=== PATIENT | male | born 1945 | race African-American/Black ===

== ENCOUNTER 2018-07-16 22:17 | Inpatient (IN) | payer MEDICAID, MEDICARE ==
[2018-07-16 22:51] LABS: URINE SOURCE RANDOM
[2018-07-16 22:54] LABS: URINE BILIRUBIN NEGATIVE (NEGATIVE); URINE BLOOD NEGATIVE (NEGATIVE); URINE GLUCOSE (UA) NEGATIVE (NEGATIVE); URINE KETONE NEGATIVE (NEGATIVE); URINE LEUKOCYTE ESTERASE NEGATIVE (NEGATIVE); URINE NITRATE NEGATIVE (NEGATIVE); URINE PROTEIN NEGATIVE (NEGATIVE); URINE UROBILINOGEN 0.2 E.U./dL (0.2 - 1.0)
[2018-07-16 23:01] LABS: URINE CLARITY CLEAR (CLEAR); URINE COLOR YELLOW; URINE MICROSCOPIC INDICATED? NO
--- NOTE | 2018-07-16 23:02 | ED Physician Chart ---
ED Chief Complaint/HPI - Patient Information Date Seen:: 07/16/18 Time Seen:: 22:45 Chief Complaint:: fall History of Present Illness:: 73 yr old bm s/[place] 4 [place] [facility] [place] brow and rt flank and fx lt wrist s/p splint pt states he had syncope loc episode while wheeling his walker with cart Allergies:: Allergies Allergy/AdvReac Type Severity Reaction Status Date / Time Penicillins Allergy Verified 07/16/18 22:27 Vitals:: Vital Signs - 8 hr 07/16/18 22:18 Temp 98.2 F HR 78 RR 16 BP 137/76 O2 Sat % 92 ED Review of Systems - Review of Systems General/Constitutional: No fever, No chills Skin: No skin lesions Head: No headache Eyes: No loss of vision ENT: No earache Neck: No neck pain Cardio Vascular: No chest pain Pulmonary: No SOB GI: No vomiting G/U: No dysuria Endocrine: No polyuria Hematopoietic: Bruising (bruising lt eye brow) Allergic/Immuno: No urticaria Neurological: No focal symptoms ED Past Medical History - Past Medical History Past Medical History: Other (see nurses notes) ED Physical Exam - Physical Examination General/Constitutional: Awake, Alert, No distress Head: Atraumatic (bruising lt eyebrow) Skin: No rash ENMT: External ears, nose nl Respiratory: No Wheeze/Rhonchi/Rales Cardio Vascular: No murmur, gallop, rubs Extremities: No tenderness or effusion Neuro/Psych: Alert/oriented ED Assessment - Assessment General Assessment: fall s/p syncope ED Septic Shock - . Is Septic Shock (SBP<90, OR Lactate>4 mmol\L) present?: No - <6hrs of presentation: Vital Signs: Vital Signs - 8 hr 07/16/18 22:18 Temp 98.2 F HR 78 RR 16 BP 137/76 O2 Sat % 92 ED Reassessment (Disposition) - Reassessment Reassessment Condition:: Unchanged - Diagnosis Diagnosis:: fall syncope - Patient Disposition Discharge/Transfer:: Acute Care w/in this hosp
[2018-07-16 23:39] LABS: WHITE BLOOD COUNT 7.3 Th/cmm (4.8-10.8)
[2018-07-16 23:47] LABS: HEMATOCRIT 46.7 % (41.0-60); HEMOGLOBIN 15.3 gm/dL (12-16); MEAN CELL VOLUME 88.1 fl (80-99); MEAN CORPUSCULAR HEMOGLOBIN 28.9 pg (27.0-31.0); MEAN CORPUSCULAR HGB CONC 32.8 pg (28.0-36.0); MEAN PLATELET VOLUME 8.4 fl; PLATELET COUNT 199 Th/cmm (150-400); RED BLOOD COUNT 5.31 Mil/cmm (3.80-5.80); RED CELL DISTRIBUTION WIDTH 15.6 % (11.5-20.0)
[2018-07-17 01:19] LABS: ALB/GLOB RATIO 0.7 (1.0-1.8); ALBUMIN 3.5 gm/dL (4.2-5.5); ANION GAP 20.7 (7.0-16.0); BUN - UREA NITROGEN 22 mg/dL (7-25); CALCIUM SERUM 9.6 mg/dL (8.6-10.3); CHLORIDE 99 mEq/L (98-107); CREATININE - SERUM 1.5 mg/dL (0.7-1.3); GLUCOSE 103 mg/dL (70-105); POTASSIUM SERUM 4.7 mEq/L (3.5-5.1); SODIUM SERUM 138 mEq/L (136-145); TOTAL PROTEIN,SERUM 8.4 gm/dL (6.0-8.3)
[2018-07-17 01:20] LABS: ALKALINE PHOSPHATASE 117 U/L (34-104); BILIRUBIN,TOTAL 0.7 mg/dL (0.3-1.0); SGOT 24 U/L (13-39); SGPT/ALT 12 U/L (7-52)
[2018-07-17 02:45] LABS: BAND NEUTROPHILE 1 % (0-10); EOSINOPHIL 2 % (0-5); LYMPHOCYTE 37 % (20-50); MONOCYTE 8 % (2-10); NEUTROPHILS 52 % (40-80); PLATELET ESTIMATE ADEQUATE (NORMAL)
[2018-07-17 03:55] VITALS: BP 134/78
[2018-07-17 06:19] LABS: % BASOPHILS 0.9 % (0.0-2.0); % EOSINOPHILS 6.3 % (0.0-5.0); % LYMPHOCYTES 36.3 % (20.0-50.0); % MONOCYTES 10.9 % (2.0-10.0); % NEUTROPHILS 45.6 % (40.0-80.0); BASOPHILE ABSOLUTE 0.1 Th/cumm (0-0.2); EOSINOPHILE ABSOLUTE 0.4 Th/cmm (0.1-0.4); HEMATOCRIT 44.4 % (41.0-60); HEMOGLOBIN 14.9 gm/dL (12-16); LYMPHOCYTE ABSOLUTE 2.2 Th/cmm (1.5-3.0); MEAN CELL VOLUME 86.8 fl (80-99); MEAN CORPUSCULAR HEMOGLOBIN 29.1 pg (27.0-31.0); MEAN CORPUSCULAR HGB CONC 33.4 pg (28.0-36.0); MEAN PLATELET VOLUME 8.5 fl; MONOCYTE ABSOLUTE 0.7 Th/cmm (0.3-1.0); NEUTROPHILE ABSOLUTE 2.6 Th/cmm (1.8-8.0); PLATELET COUNT 213 Th/cmm (150-400); RED BLOOD COUNT 5.12 Mil/cmm (3.80-5.80); RED CELL DISTRIBUTION WIDTH 15.3 % (11.5-20.0)
[2018-07-17 06:37] LABS: ANION GAP 11.5 (7.0-16.0); BUN - UREA NITROGEN 20 mg/dL (7-25); CALCIUM SERUM 9.6 mg/dL (8.6-10.3); CARBON DIOXIDE 26.7 mEq/L (21.0-31.0); CHLORIDE 103 mEq/L (98-107); CREATININE - SERUM 1.1 mg/dL (0.7-1.3); GLUCOSE 121 mg/dL (70-105); POTASSIUM SERUM 4.2 mEq/L (3.5-5.1); SODIUM SERUM 137 mEq/L (136-145)
--- NOTE | 2018-07-17 07:57 | Diagnostic Imaging Report ---
Lumbar spine (5 views) HISTORY: Pain Alignment is normal. Diffuse degenerative changes are seen with hypertrophic spur formation noted about the endplates of all vertebrae. Narrowing of the L4-5 and L5-S1 interspaces. Narrowing of the L2-3 interspace. Air is seen within the interspaces at L2-3, L4-5, and L5-S1 reflecting degenerative disc disease. There is a scoliosis of the thoracolumbar spine convexity to the right. This may be positional. Vascular stent noted in the region of the lower abdominal aorta and iliac arteries. IMPRESSION: 1. No acute abnormalities 2. Diffuse degenerative changes 3. Intraluminal aortic stent within the lower aorta and iliac artery regions.
[2018-07-17] MEDS ORDERED: OLODATEROL HCL IH SCH (23:00)
[2018-07-17] MEDS ORDERED: [UNRECOGNIZED DRUG - OTHER] IH SCH (23:00)
[2018-07-17] MEDS ORDERED: TIOTROPIUM BR IH SCH (23:00)
--- NOTE | 2018-07-17 23:42 | History & Physical ---
ADMIT DATE: 07/17/2018 CHIEF COMPLAINT: Weakness, short of breath, and repeated fall. HISTORY OF PRESENT ILLNESS: The patient is a 73-year-old male admitted from the Emergency Room due to severe weakness with repeated fall and resultant severe low back pain. Lumbar spine x-ray in the Emergency Room revealed diffuse degenerative changes on the intraluminal aortic stent within the lower aorta and iliac artery regions. Additionally, the patient also complains of some shortness of breath. He has had COPD and has been on albuterol and Spiriva inhaler as outpatient. Chest x-ray was not done in the Emergency Room and I have just ordered. We will see the results tomorrow. The patient is very lethargic and somewhat confused from time to time. PAST MEDICAL HISTORY: Diabetes, COPD, peripheral vascular disease, and chronic pain syndrome. PAST SURGICAL HISTORY: Status post aortic stent placement. MEDICATIONS: See medication reconciliation list. ALLERGIES: PENICILLIN. FAMILY HISTORY: Noncontributory. SOCIAL HISTORY: The patient smoked before, quit years ago. No history of alcohol or IV drug use. REVIEW OF SYSTEMS: As per HPI. PHYSICAL EXAMINATION: GENERAL: A well-developed male, in no acute distress. SKIN: Warm and dry. VITAL SIGNS: Basically stable. HEENT: Normocephalic, atraumatic. Pupils equal, round, react to light and accommodation. CHEST: Symmetrical. LUNGS: Few wheezing appreciated. CARDIAC: Normal sinus rhythm. S1, S2. ABDOMEN: Benign, soft, nontender. EXTREMITIES: No clubbing, cyanosis, or edema . HEMATOLOGICAL: Unremarkable. LABORATORY DATA: Reviewed. BUN 22, creatinine 1.5. ASSESSMENT AND PLAN: 1. Severe weakness with repeated fall. Apparently, there is no radiographic evidence of acute fracture, but the patient is very weak. I have ordered physical therapy evaluation and treatment. 2. Acute kidney injury with elevated creatinine: We will try to avoid any nephrotoxic medications if possible. We will repeat BMP. 3. Severe low back pain, likely sciatic: Continue conservative management and physical therapy. 4. Diabetes: Sliding scale insulin low dose and continue medication. 5. Chronic obstructive pulmonary disease with mild exacerbation: RT protocol and chest x-ray. 6. Peripheral vascular disease. 7. Abdominal aortic aneurysm, status post stent placement: Continue medication. 8. Deep venous thrombosis prophylaxis. 9. History of depression. JOB# [id number]
[2018-07-18] MEDS: Pantoprazole 40 mg EC Tab PO SCH (07:09)
[2018-07-18] MEDS ORDERED: Albuterol Nebulizer 2.5mg/3mL HHN PRN (07:44)
--- NOTE | 2018-07-18 08:45 | Diagnostic Imaging Report ---
Chest x-ray single view History: COPD pneumonia Comparison: None The heart size is normal. No focal pulmonary parenchymal processes. No hilar or mediastinal abnormalities. Mild right basilar atelectasis is noted Impression: No acute abnormalities, mild right basilar atelectasis.
[2018-07-18] MEDS: Aspirin 81mg Chewable Tab PO SCH (09:43)
[2018-07-18] MEDS: Albuterol/Ipratropium Neb 3 ML AERS HHN SCH (20:01)
--- NOTE | 2018-07-18 23:20 | Internal Medicine Prog Note ---
Internal Medicine Subjective - Subjective Service Date: 07/18/18 Patient seen and examined:: without staff Patient is:: awake, verbal, interactive, in bed Per staff patient has:: no adverse event Internal Medicine Objective - Results Result Diagrams: 07/17/18 06:00 07/17/18 06:00 Recent Labs: Laboratory Last Values WBC 6.0 Th/cmm (4.8-10.8) 07/17/18 06:00 RBC 5.12 Mil/cmm (3.80-5.80) 07/17/18 06:00 Hgb 14.9 gm/dL (12-16) 07/17/18 06:00 Hct 44.4 % (41.0-60) 07/17/18 06:00 MCV 86.8 fl (80-99) 07/17/18 06:00 MCH 29.1 pg (27.0-31.0) 07/17/18 06:00 MCHC Differential 33.4 pg (28.0-36.0) 07/17/18 06:00 RDW 15.3 % (11.5-20.0) 07/17/18 06:00 Plt Count 213 Th/cmm (150-400) 07/17/18 06:00 MPV 8.5 fl 07/17/18 06:00 Add Manual Diff YES 07/16/18 23:30 Neutrophils % 45.6 % (40.0-80.0) 07/17/18 06:00 Band Neutrophils % 1 % (0-10) 07/16/18 23:30 Lymphocytes % 36.3 % (20.0-50.0) 07/17/18 06:00 Monocytes % 10.9 % (2.0-10.0) H 07/17/18 06:00 Eosinophils % 6.3 % (0.0-5.0) H 07/17/18 06:00 Basophils % 0.9 % (0.0-2.0) 07/17/18 06:00 Neutrophils (Manual) 52 % (40-80) 07/16/18 23:30 Lymphocytes 37 % (20-50) 07/16/18 23:30 Monocytes 8 % (2-10) 07/16/18 23:30 Eosinophils 2 % (0-5) 07/16/18 23:30 Platelet Estimate ADEQUATE (NORMAL) 09/19/18 23:30 Sodium 137 mEq/L (136-145) 07/17/18 06:00 Potassium 4.2 mEq/L (3.5-5.1) 07/17/18 06:00 Chloride 103 mEq/L (98-107) 07/17/18 06:00 Carbon Dioxide 26.7 mEq/L (21.0-31.0) 07/17/18 06:00 Anion Gap 11.5 (7.0-16.0) 07/17/18 06:00 BUN 20 mg/dL (7-25) 07/17/18 06:00 Creatinine 1.1 mg/dL (0.7-1.3) 07/17/18 06:00 Est GFR ( Amer) TNP 07/17/18 06:00 Est GFR (Non-Af Amer) TNP 07/17/18 06:00 BUN/Creatinine Ratio 18.2 07/17/18 06:00 Glucose 121 mg/dL (70-105) H 07/17/18 06:00 Calcium 9.6 mg/dL (8.6-10.3) 07/17/18 06:00 Total Bilirubin 0.7 mg/dL (0.3-1.0) 07/16/18 23:30 AST 24 U/L (13-39) 07/16/18 23:30 ALT 12 U/L (7-52) 07/16/18 23:30 Alkaline Phosphatase 117 U/L (34-104) H 07/16/18 23:30 Total Protein 8.4 gm/dL (6.0-8.3) H 07/16/18 23:30 Albumin 3.5 gm/dL (4.2-5.5) L 07/16/18 23:30 Globulin 4.9 gm/dL 07/16/18 23:30 Albumin/Globulin Ratio 0.7 (1.0-1.8) L 07/16/18 23:30 TSH 0.70 uIU/ml (0.34-5.60) 07/16/18 23:30 Urine Source RANDOM 07/16/18 22:35 Urine Color YELLOW 07/16/18 22:35 Urine Clarity CLEAR (CLEAR) 07/16/18 22:35 Urine pH 6.0 (4.6 - 8.0) 07/16/18 22:35 Ur Specific [place] <= 1.005 (1.005-1.030) 07/16/18 22:35 Urine Protein NEGATIVE mg/dL (NEGATIVE) 07/16/18 22:35 Urine Glucose (UA) NEGATIVE mg/dL (NEGATIVE) 07/16/18 22:35 Urine Ketones NEGATIVE mg/dL (NEGATIVE) 07/16/18 22:35 Urine Blood NEGATIVE (NEGATIVE) 07/16/18 22:35 Urine Nitrate NEGATIVE (NEGATIVE) 07/16/18 22:35 Urine Bilirubin NEGATIVE (NEGATIVE) 07/16/18 22:35 Urine Urobilinogen 0.2 E.U./dL (0.2 - 1.0) 07/16/18 22:35 Ur Leukocyte Esterase NEGATIVE (NEGATIVE) 07/16/18 22:35 - Physical Exam Vitals and I&O: Vital Signs Temp 97.4 F 07/18/18 20:01 Pulse 70 07/18/18 20:01 Resp 18 07/18/18 20:01 BP 116/64 07/18/18 20:01 Pulse Ox 95 07/18/18 20:01 Intake & Output 07/18/18 07/18/18 07/19/18 06:59 18:59 06:59 Intake Total 200 Balance 200 Weight (lbs) 85.077 kg 88.224 kg Intake: Oral 200 Other: # Voids 2 # Bowel Movements 0 Weight Source Bedscale Bedscale Active Medications: Current Medications Acetaminophen (Tylenol) 650 mg PO Q4H PRN PRN Reason: Pain or Fever >101 Stop: 09/15/18 00:14 Last Admin: 07/18/18 09:49 Dose: 650 mg Albuterol Sulfate (Albuterol 2.5mg/3ml Neb Ud) 2.5 mg HHN Q4H PRN PRN Reason: Shortness of Breath Stop: 09/16/18 07:43 Albuterol/Ipratropium (Duoneb Neb) 3 ml HHN QIDRT [facility] Stop: 09/16/18 14:59 Last Admin: 07/18/18 20:01 Dose: Not Given Aspirin (Aspirin Chewable) 81 mg PO DAILY [facility] Stop: 09/16/18 08:59 Last Admin: 07/18/18 09:43 Dose: 81 mg Atorvastatin Calcium (Lipitor) 40 mg PO DAILY [facility] Stop: 09/16/18 08:59 Last Admin: 07/18/18 09:41 Dose: 40 mg Docusate Sodium (Colace) 200 mg PO BID [facility] Stop: 09/16/18 08:59 Last Admin: 07/18/18 17:37 Dose: 200 mg Duloxetine HCl (Cymbalta) 60 mg PO BID [facility]; Protocol Stop: 09/16/18 08:59 Last Admin: 07/18/18 17:37 Dose: 60 mg Gabapentin (Neurontin) 900 mg PO TID [facility] Stop: 09/16/18 08:59 Last Admin: 07/18/18 20:41 Dose: 900 mg Metoprolol Tartrate (Lopressor) 50 mg PO BID [facility] Stop: 09/16/18 08:59 Last Admin: 07/18/18 17:37 Dose: Not Given Pantoprazole Sodium (Protonix) 40 mg PO QDAC [facility] Stop: 09/16/18 07:29 Last Admin: 07/18/18 07:09 Dose: 40 mg Sitagliptin Phosphate (Januvia) 100 mg PO DAILY [facility] Stop: 09/16/18 08:59 Last Admin: 07/18/18 09:42 Dose: 100 mg General: weak, lethargic HEENT: NC/AT, PERRLA, EOMI, anicteric sclerae, throat clear Neck: Supple, No JVD, No thyromegaly Lungs: wheezing Cardiovascular: RRR, Normal S1, Normal S2 Abdomen: soft, non-tender, non-distended Extremities: clear, edema, ecchymosis Neurological: no change Internal Medicine Assmt/Plan - Assessment Assessment: COPD exacerbation: RT protocol. Weakness: fall prevention precaution. s/p Falls: fall prevention education. Chronic pain syndrome: pain contril. DM: SSI HTN: target 110/70 DVT prophylaxia.
[2018-07-19] MEDS: Albuterol/Ipratropium Neb 3 ML AERS HHN SCH ×5 (06:54→19:27)
[2018-07-19] MEDS: Pantoprazole 40 mg EC Tab PO SCH (08:47)
[2018-07-19] MEDS: Aspirin 81mg Chewable Tab PO SCH (08:47)
--- NOTE | 2018-07-19 23:50 | Internal Medicine Prog Note ---
Internal Medicine Subjective - Subjective Service Date: 07/19/18 Patient seen and examined:: with staff Patient is:: awake, verbal, interactive, in bed Per staff patient has:: no adverse event Internal Medicine Objective - Results Result Diagrams: 07/17/18 06:00 07/17/18 06:00 Recent Labs: Laboratory Last Values WBC 6.0 Th/cmm (4.8-10.8) 07/17/18 06:00 RBC 5.12 Mil/cmm (3.80-5.80) 07/17/18 06:00 Hgb 14.9 gm/dL (12-16) 07/17/18 06:00 Hct 44.4 % (41.0-60) 07/17/18 06:00 MCV 86.8 fl (80-99) 07/17/18 06:00 MCH 29.1 pg (27.0-31.0) 07/17/18 06:00 MCHC Differential 33.4 pg (28.0-36.0) 07/17/18 06:00 RDW 15.3 % (11.5-20.0) 07/17/18 06:00 Plt Count 213 Th/cmm (150-400) 07/17/18 06:00 MPV 8.5 fl 07/17/18 06:00 Add Manual Diff YES 07/16/18 23:30 Neutrophils % 45.6 % (40.0-80.0) 07/17/18 06:00 Band Neutrophils % 1 % (0-10) 07/16/18 23:30 Lymphocytes % 36.3 % (20.0-50.0) 07/17/18 06:00 Monocytes % 10.9 % (2.0-10.0) H 07/17/18 06:00 Eosinophils % 6.3 % (0.0-5.0) H 07/17/18 06:00 Basophils % 0.9 % (0.0-2.0) 07/17/18 06:00 Neutrophils (Manual) 52 % (40-80) 07/16/18 23:30 Lymphocytes 37 % (20-50) 07/16/18 23:30 Monocytes 8 % (2-10) 07/16/18 23:30 Eosinophils 2 % (0-5) 07/16/18 23:30 Platelet Estimate ADEQUATE (NORMAL) 09/19/18 23:30 Sodium 137 mEq/L (136-145) 07/17/18 06:00 Potassium 4.2 mEq/L (3.5-5.1) 07/17/18 06:00 Chloride 103 mEq/L (98-107) 07/17/18 06:00 Carbon Dioxide 26.7 mEq/L (21.0-31.0) 07/17/18 06:00 Anion Gap 11.5 (7.0-16.0) 07/17/18 06:00 BUN 20 mg/dL (7-25) 07/17/18 06:00 Creatinine 1.1 mg/dL (0.7-1.3) 07/17/18 06:00 Est GFR ( Amer) TNP 07/17/18 06:00 Est GFR (Non-Af Amer) TNP 07/17/18 06:00 BUN/Creatinine Ratio 18.2 07/17/18 06:00 Glucose 121 mg/dL (70-105) H 07/17/18 06:00 Calcium 9.6 mg/dL (8.6-10.3) 07/17/18 06:00 Total Bilirubin 0.7 mg/dL (0.3-1.0) 07/16/18 23:30 AST 24 U/L (13-39) 07/16/18 23:30 ALT 12 U/L (7-52) 07/16/18 23:30 Alkaline Phosphatase 117 U/L (34-104) H 07/16/18 23:30 Total Protein 8.4 gm/dL (6.0-8.3) H 07/16/18 23:30 Albumin 3.5 gm/dL (4.2-5.5) L 07/16/18 23:30 Globulin 4.9 gm/dL 07/16/18 23:30 Albumin/Globulin Ratio 0.7 (1.0-1.8) L 07/16/18 23:30 Carcinoembryonic Ag 1.8 ng/mL (0.0-4.7) 07/18/18 00:00 Prostate Specific Ag 2.2 ng/mL (0.0-4.0) 07/18/18 00:00 TSH 0.70 uIU/ml (0.34-5.60) 07/16/18 23:30 Urine Source RANDOM 07/16/18 22:35 Urine Color YELLOW 07/16/18 22:35 Urine Clarity CLEAR (CLEAR) 07/16/18 22:35 Urine pH 6.0 (4.6 - 8.0) 07/16/18 22:35 Ur Specific [place] <= 1.005 (1.005-1.030) 07/16/18 22:35 Urine Protein NEGATIVE mg/dL (NEGATIVE) 07/16/18 22:35 Urine Glucose (UA) NEGATIVE mg/dL (NEGATIVE) 07/16/18 22:35 Urine Ketones NEGATIVE mg/dL (NEGATIVE) 07/16/18 22:35 Urine Blood NEGATIVE (NEGATIVE) 07/16/18 22:35 Urine Nitrate NEGATIVE (NEGATIVE) 07/16/18 22:35 Urine Bilirubin NEGATIVE (NEGATIVE) 07/16/18 22:35 Urine Urobilinogen 0.2 E.U./dL (0.2 - 1.0) 07/16/18 22:35 Ur Leukocyte Esterase NEGATIVE (NEGATIVE) 07/16/18 22:35 - Physical Exam Vitals and I&O: Vital Signs Temp 97.4 F 07/19/18 20:00 Pulse 71 07/19/18 20:00 Resp 20 07/19/18 20:00 BP 100/55 07/19/18 20:00 Pulse Ox 97 07/19/18 20:00 Intake & Output 07/19/18 07/19/18 07/20/18 06:59 18:59 06:59 Intake Total 100 1000 Balance 100 1000 Weight (lbs) 88.904 kg 88.904 kg Intake: Oral 100 1000 Other: # Voids 2 4 # Bowel Movements 0 0 Weight Source Bedscale Bedscale Active Medications: Current Medications Acetaminophen (Tylenol) 650 mg PO Q4H PRN PRN Reason: Pain or Fever >101 Stop: 09/15/18 00:14 Last Admin: 07/19/18 19:39 Dose: 650 mg Albuterol Sulfate (Albuterol 2.5mg/3ml Neb Ud) 2.5 mg HHN Q4H PRN PRN Reason: Shortness of Breath Stop: 09/16/18 07:43 Albuterol/Ipratropium (Duoneb Neb) 3 ml HHN QIDRT [facility] Stop: 09/16/18 14:59 Last Admin: 07/19/18 19:27 Dose: 3 ml Aspirin (Aspirin Chewable) 81 mg PO DAILY [facility] Stop: 09/16/18 08:59 Last Admin: 07/19/18 08:47 Dose: 81 mg Atorvastatin Calcium (Lipitor) 40 mg PO DAILY [facility] Stop: 09/16/18 08:59 Last Admin: 07/19/18 08:48 Dose: 40 mg Docusate Sodium (Colace) 200 mg PO BID [facility] Stop: 09/16/18 08:59 Last Admin: 07/19/18 16:02 Dose: 200 mg Duloxetine HCl (Cymbalta) 60 mg PO BID [facility]; Protocol Stop: 09/16/18 08:59 Last Admin: 07/19/18 16:03 Dose: 60 mg Gabapentin (Neurontin) 900 mg PO TID [facility] Stop: 09/16/18 08:59 Last Admin: 07/19/18 21:03 Dose: 900 mg Metoprolol Tartrate (Lopressor) 50 mg PO BID [facility] Stop: 09/16/18 08:59 Last Admin: 07/19/18 16:02 Dose: 50 mg Pantoprazole Sodium (Protonix) 40 mg PO QDAC [facility] Stop: 09/16/18 07:29 Last Admin: 07/19/18 08:47 Dose: 40 mg Sitagliptin Phosphate (Januvia) 100 mg PO DAILY [facility] Stop: 09/16/18 08:59 Last Admin: 07/19/18 08:47 Dose: 100 mg General: weak, lethargic HEENT: NC/AT, PERRLA, EOMI, anicteric sclerae, throat clear Neck: Supple, No JVD, No thyromegaly Lungs: wheezing Cardiovascular: RRR, Normal S1, Normal S2 Abdomen: soft, non-tender, non-distended Extremities: clear, edema, ecchymosis Neurological: no change Internal Medicine Assmt/Plan - Assessment Assessment: s/p Falls: fall prevention education. COPD exacerbation: RT protocol. Weakness: fall prevention precaution. Chronic pain syndrome: pain contril. DM: SSI HTN: target 110/70 DVT prophylaxia.
[2018-07-20] MEDS: Albuterol/Ipratropium Neb 3 ML AERS HHN SCH ×4 (06:46→19:09)
[2018-07-20] MEDS: Pantoprazole 40 mg EC Tab PO SCH (07:02)
[2018-07-20] MEDS: Aspirin 81mg Chewable Tab PO SCH (09:15)
--- NOTE | 2018-07-20 23:59 | Internal Medicine Prog Note ---
Internal Medicine Subjective - Subjective Service Date: 07/20/18 Patient seen and examined:: without staff Patient is:: awake, verbal, interactive, in bed Per staff patient has:: no adverse event Internal Medicine Objective - Results Result Diagrams: 07/17/18 06:00 07/17/18 06:00 Recent Labs: Laboratory Last Values WBC 6.0 Th/cmm (4.8-10.8) 07/17/18 06:00 RBC 5.12 Mil/cmm (3.80-5.80) 07/17/18 06:00 Hgb 14.9 gm/dL (12-16) 07/17/18 06:00 Hct 44.4 % (41.0-60) 07/17/18 06:00 MCV 86.8 fl (80-99) 07/17/18 06:00 MCH 29.1 pg (27.0-31.0) 07/17/18 06:00 MCHC Differential 33.4 pg (28.0-36.0) 07/17/18 06:00 RDW 15.3 % (11.5-20.0) 07/17/18 06:00 Plt Count 213 Th/cmm (150-400) 07/17/18 06:00 MPV 8.5 fl 07/17/18 06:00 Add Manual Diff YES 07/16/18 23:30 Neutrophils % 45.6 % (40.0-80.0) 07/17/18 06:00 Band Neutrophils % 1 % (0-10) 07/16/18 23:30 Lymphocytes % 36.3 % (20.0-50.0) 07/17/18 06:00 Monocytes % 10.9 % (2.0-10.0) H 07/17/18 06:00 Eosinophils % 6.3 % (0.0-5.0) H 07/17/18 06:00 Basophils % 0.9 % (0.0-2.0) 07/17/18 06:00 Neutrophils (Manual) 52 % (40-80) 07/16/18 23:30 Lymphocytes 37 % (20-50) 07/16/18 23:30 Monocytes 8 % (2-10) 07/16/18 23:30 Eosinophils 2 % (0-5) 07/16/18 23:30 Platelet Estimate ADEQUATE (NORMAL) 09/19/18 23:30 Sodium 137 mEq/L (136-145) 07/17/18 06:00 Potassium 4.2 mEq/L (3.5-5.1) 07/17/18 06:00 Chloride 103 mEq/L (98-107) 07/17/18 06:00 Carbon Dioxide 26.7 mEq/L (21.0-31.0) 07/17/18 06:00 Anion Gap 11.5 (7.0-16.0) 07/17/18 06:00 BUN 20 mg/dL (7-25) 07/17/18 06:00 Creatinine 1.1 mg/dL (0.7-1.3) 07/17/18 06:00 Est GFR ( Amer) TNP 07/17/18 06:00 Est GFR (Non-Af Amer) TNP 07/17/18 06:00 BUN/Creatinine Ratio 18.2 07/17/18 06:00 Glucose 121 mg/dL (70-105) H 07/17/18 06:00 Calcium 9.6 mg/dL (8.6-10.3) 07/17/18 06:00 Total Bilirubin 0.7 mg/dL (0.3-1.0) 07/16/18 23:30 AST 24 U/L (13-39) 07/16/18 23:30 ALT 12 U/L (7-52) 07/16/18 23:30 Alkaline Phosphatase 117 U/L (34-104) H 07/16/18 23:30 Total Protein 8.4 gm/dL (6.0-8.3) H 07/16/18 23:30 Albumin 3.5 gm/dL (4.2-5.5) L 07/16/18 23:30 Globulin 4.9 gm/dL 07/16/18 23:30 Albumin/Globulin Ratio 0.7 (1.0-1.8) L 07/16/18 23:30 Carcinoembryonic Ag 1.8 ng/mL (0.0-4.7) 07/18/18 00:00 Prostate Specific Ag 2.2 ng/mL (0.0-4.0) 07/18/18 00:00 TSH 0.70 uIU/ml (0.34-5.60) 07/16/18 23:30 Urine Source RANDOM 07/16/18 22:35 Urine Color YELLOW 07/16/18 22:35 Urine Clarity CLEAR (CLEAR) 07/16/18 22:35 Urine pH 6.0 (4.6 - 8.0) 07/16/18 22:35 Ur Specific [place] <= 1.005 (1.005-1.030) 07/16/18 22:35 Urine Protein NEGATIVE mg/dL (NEGATIVE) 07/16/18 22:35 Urine Glucose (UA) NEGATIVE mg/dL (NEGATIVE) 07/16/18 22:35 Urine Ketones NEGATIVE mg/dL (NEGATIVE) 07/16/18 22:35 Urine Blood NEGATIVE (NEGATIVE) 07/16/18 22:35 Urine Nitrate NEGATIVE (NEGATIVE) 07/16/18 22:35 Urine Bilirubin NEGATIVE (NEGATIVE) 07/16/18 22:35 Urine Urobilinogen 0.2 E.U./dL (0.2 - 1.0) 07/16/18 22:35 Ur Leukocyte Esterase NEGATIVE (NEGATIVE) 07/16/18 22:35 - Physical Exam Vitals and I&O: Vital Signs Temp 97.5 F 07/20/18 20:00 Pulse 62 07/20/18 20:00 Resp 17 07/20/18 20:00 BP 105/64 07/20/18 20:00 Pulse Ox 94 07/20/18 20:00 Intake & Output 07/20/18 07/20/18 07/21/18 06:59 18:59 06:59 Intake Total 200 Balance 200 Weight (lbs) 87.798 kg Intake: Oral 200 Other: # Voids 2 # Bowel Movements 0 Weight Source Bedscale Active Medications: Current Medications Acetaminophen (Tylenol) 650 mg PO Q4H PRN PRN Reason: Pain or Fever >101 Stop: 09/15/18 00:14 Last Admin: 07/20/18 20:29 Dose: 650 mg Albuterol Sulfate (Albuterol 2.5mg/3ml Neb Ud) 2.5 mg HHN Q4H PRN PRN Reason: Shortness of Breath Stop: 09/16/18 07:43 Albuterol/Ipratropium (Duoneb Neb) 3 ml HHN QIDRT [facility] Stop: 09/16/18 14:59 Last Admin: 09/23/18 19:09 Dose: 3 ml Aspirin (Aspirin Chewable) 81 mg PO DAILY [facility] Stop: 09/16/18 08:59 Last Admin: 07/20/18 09:15 Dose: 81 mg Atorvastatin Calcium (Lipitor) 40 mg PO DAILY [facility] Stop: 09/16/18 08:59 Last Admin: 07/20/18 09:15 Dose: 40 mg Docusate Sodium (Colace) 200 mg PO BID [facility] Stop: 09/16/18 08:59 Last Admin: 07/20/18 17:50 Dose: 200 mg Duloxetine HCl (Cymbalta) 60 mg PO BID [facility]; Protocol Stop: 09/16/18 08:59 Last Admin: 07/20/18 17:50 Dose: 60 mg Gabapentin (Neurontin) 900 mg PO TID [facility] Stop: 09/16/18 08:59 Last Admin: 07/20/18 20:30 Dose: 900 mg Metoprolol Tartrate (Lopressor) 50 mg PO BID [facility] Stop: 09/16/18 08:59 Last Admin: 07/20/18 17:50 Dose: 50 mg Pantoprazole Sodium (Protonix) 40 mg PO QDAC [facility] Stop: 09/16/18 07:29 Last Admin: 07/20/18 07:02 Dose: 40 mg Sitagliptin Phosphate (Januvia) 100 mg PO DAILY [facility] Stop: 09/16/18 08:59 Last Admin: 07/20/18 09:14 Dose: 100 mg General: weak, lethargic HEENT: NC/AT, PERRLA, EOMI, anicteric sclerae, throat clear Neck: Supple, No JVD, No thyromegaly Lungs: wheezing Cardiovascular: RRR, Normal S1, Normal S2 Abdomen: soft, non-tender, non-distended Extremities: clear, edema, ecchymosis Neurological: no change Internal Medicine Assmt/Plan - Assessment Assessment: COPD exacerbation: RT protocol. s/p Falls: fall prevention education. Weakness: fall prevention precaution. Chronic pain syndrome: pain contril. DM: SSI HTN: target 110/70 DVT prophylaxia.
[2018-07-21] MEDS: Albuterol/Ipratropium Neb 3 ML AERS HHN SCH ×2 (07:00→10:47)
[2018-07-21] MEDS: Aspirin 81mg Chewable Tab PO SCH (09:58)
[2018-07-21] MEDS: Pantoprazole 40 mg EC Tab PO SCH (10:05)
--- NOTE | 2018-07-22 03:27 | Discharge Summary ---
DATE OF DISCHARGE: 07/21/2018 FINAL DIAGNOSES: 1. Status post fall without apparent fracture. 2. Chronic obstructive pulmonary disease exacerbation, improved. 3. Weakness, stabilized. 4. Chronic pain syndrome, controlled. 5. Diabetes. 6. Hypertension. HOSPITAL COURSE: The patient is a 73-year-old male admitted due to status post fall with severe pain, aches in the back. The patient also complains of some shortness of breath from COPD, mild exacerbation. The patient received RT protocol with improvement and the patient was accepted back to long-term today. DISCHARGE CONDITION: Stable. DISPOSITION: [facility]. DISCHARGE MEDICATIONS: Continue medication from here. DIET: 1800 ADA cardiac soft diet. ACTIVITY: As tolerated with physical therapy. FOLLOWUP: One week. JOB# [id number]
== END 2018-07-21 14:20 | DRG 683 ==
LOC: ER 22:17 → MSI 07-17 00:01
PROVIDERS: ADMIT Internal Medicine; ATTEND Internal Medicine
DX: N17.9 Acute kidney failure, unspecified (principal); J44.1 Chronic obstructive pulmonary disease with (acute) exacerbation; I13.0 Hypertensive heart and chronic kidney disease with heart failure and stage 1 through stage 4 chronic kidney disease, or unspecified chronic kidney disease; R29.6 Repeated falls; M54.5 Low back pain; I25.10 Atherosclerotic heart disease of native coronary artery without angina pectoris; I50.9 Heart failure, unspecified; J44.9 Chronic obstructive pulmonary disease, unspecified; I11.0 Hypertensive heart disease with heart failure; E78.5 Hyperlipidemia, unspecified; R55 Syncope and collapse; E11.51 Type 2 diabetes mellitus with diabetic peripheral angiopathy without gangrene; G89.4 Chronic pain syndrome; F32.9 Major depressive disorder, single episode, unspecified; W18.30XA Fall on same level, unspecified, initial encounter; Y93.89 Activity, other specified; Y92.89 Other specified places as the place of occurrence of the external cause; Y99.8 Other external cause status; Z88.0 Allergy status to penicillin; Z79.84 Long term (current) use of oral hypoglycemic drugs; N18.2 Chronic kidney disease, stage 2 (mild)
CPT/HCPCS: 36415-UA; 71045-TC; 72100-TC; 80048-TC; 80053-TC; 81003-TC; 82378-90; 84153-90; 84443-TC; 85007-TC; 85025-TC; 93005; 94640; 94760; Z7610